=== PATIENT | female | born 1995 | race African-American/Black ===

== ENCOUNTER 2018-08-13 17:11 | Emergency (ER) | payer SELFPAY ==
[~2018-08-13] VITALS: Ht 165.1 cm; Wt 56.8 kg
[2018-08-13] MEDS ORDERED: ALBU8HFA IH (17:30)
[2018-08-13 19:09] VITALS: BP 118/68
== END 2018-08-13 19:12 | disposition home or self-care (01) ==
LOC: EMS 17:12
DX: H10.9 Unspecified conjunctivitis (principal); J45.909 Unspecified asthma, uncomplicated; Z88.8 Allergy status to other drugs, medicaments and biological substances

== ENCOUNTER 2018-08-15 12:14 | Emergency (ER) | payer SELFPAY ==
[~2018-08-15] VITALS: Ht 165.1 cm; Wt 56.8 kg
[~2018-08-15 12:14] MED LIST: ALBU8HFA IH
[2018-08-15] MEDS ORDERED: CefTRIAXone SODIUM 1 GM/VIAL IM ONE (14:15)
[2018-08-15] MEDS ORDERED: AZITHROMYCIN 250 MG TABLET PO ONE (14:15)
[2018-08-15] MEDS ORDERED: LIDOCAINE/PF 1% 2 ML VIAL IM ONE (14:15)
[2018-08-15 15:16] VITALS: BP 109/73
== END 2018-08-15 15:22 | disposition home or self-care (01) ==
LOC: EMS 12:14
DX: J45.909 Unspecified asthma, uncomplicated (principal); Z20.2 Contact with and (suspected) exposure to infections with a predominantly sexual mode of transmission; Z88.8 Allergy status to other drugs, medicaments and biological substances
CPT/HCPCS: 87491; 87591; 96372; 99283; J0696; J3490

== ENCOUNTER 2018-08-15 17:36 | Emergency (ER) | payer MEDICAID ==
[~2018-08-15] VITALS: Ht 172.7 cm; Wt 54.5 kg
[2018-08-15] MEDS ORDERED: PB/HYOSCY/ATR/SCOP/LIDO/MAALOX 55 ML BOTTLE PO ONE (20:30)
[2018-08-15] MEDS ORDERED: SODIUM CHLORIDE 0.9% 1,000 ML IV ONE (20:30)
[2018-08-15 20:38] LABS: BASOPHILS % (AUTO) 0.4 % (0.0-2.0); EOSINOPHILS % (AUTO) 0.1 % (1.0-6.0); HEMOGLOBIN 13.1 g/dL (12.0-16.0); LYMPHOCYTES # (AUTO) 2.3 K/uL (1.0-4.8); LYMPHOCYTES % (AUTO) 20.7 % (22.0-44.0); MEAN CORPUSCULAR HEMOGLOBIN 30.1 pg (26.0-34.0); MEAN CORPUSCULAR HGB CONC 34.4 G/dL (31.0-37.0); MEAN CORPUSCULAR VOLUME 88 fL (80-100); MONOCYTES # (AUTO) 0.7 K/uL (0.1-1.0); MONOCYTES % (AUTO) 6.2 % (2.0-9.0); NEUTROPHILS % (AUTO) 72.6 % (40.0-70.0); PLATELET COUNT (AUTO) 370 K/uL (150-450); RED BLOOD CELL COUNT(AUTO) 4.34 MIL/uL (4.00-5.20); RED CELL DISTRIBUTION WIDTH 14.1 % (11.5-14.5)
[2018-08-15 20:47] LABS: ANION GAP 18 mmol/L (8-16); CALCIUM, TOTAL 9.5 mg/dL (8.8-10.5); CARBON DIOXIDE 19 mmol/L (22-29); CHLORIDE 103 mmol/L (98-107); CREATININE 0.85 mg/dL (0.60-1.30); GLOMERULAR FILTR. RATE CALC > 60 mL/min (>60); GLUCOSE,RANDOM 123 mg/dL (70-110); SODIUM SERUM 140 mmol/L (136-145); UREA NITROGEN, BLOOD 8 mg/dL (7-18)
[2018-08-15 20:53] LABS: ALANINE AMINOTRANSFERASE 16 U/L (12-78); ALBUMIN 4.2 g/dL (3.4-5.0); ALKALINE PHOSPHATASE 60 U/L (46-116); ASPARTATE AMINOTRANSFERASE 19 U/L (15-37); BILIRUBIN,TOTAL 0.6 mg/dL (0.1-1.0); LIPASE 51 U/L (73-393); TOTAL PROTEIN, SERUM 8.8 g/dL (6.4-8.2)
[2018-08-15] MEDS ORDERED: DiphenhydrAMINE HCL 50 MG/ML VIAL IVP ONE (21:00)
[2018-08-15] MEDS ORDERED: HALOPERIDOL LACTATE 5 MG/ML VIAL IM ONE (21:45)
[2018-08-15] MEDS ORDERED: HYDROmorphone 2 MG/ML SYRINGE IVP ONE (22:45)
[2018-08-15 22:57] LABS: HCG,QUANTITATIVE < 1 mIU/mL (0-6)
[2018-08-16 03:26] VITALS: BP 110/60
== END 2018-08-16 03:29 | disposition home or self-care (01) ==
LOC: EMS 17:36
DX: E87.6 Hypokalemia (principal); R11.2 Nausea with vomiting, unspecified; J45.909 Unspecified asthma, uncomplicated; Z88.8 Allergy status to other drugs, medicaments and biological substances
CPT/HCPCS: 36415; 80053; 83690; 84702; 85025; 96361; 96372; 96374; 96375; 99285; J1170; J1200; J1630; J7030